=== PATIENT | female | born 1925 | race Caucasian/White ===

== ENCOUNTER 2016-10-15 17:09 | Observation (INO) | payer OTHER, BC ==
[2016-10-15] MEDS ORDERED: NITROGLYCERIN 0.4 MG BTL SL PRN (17:42)
[2016-10-15] MEDS ORDERED: NS 1,000 ML IV ONE (17:42)
[2016-10-15] MEDS ORDERED: ASPIRIN 81 MG CHEWABLE TAB PO ONE (17:42)
--- NOTE | 2016-10-15 17:42 | CPEKG ---
Heart Rate: 72 RR Interval: 833 P-R Interval: 184 QRSD Interval: 88 QT Interval: 360 QTC Interval: 394 P Paulding: 48 QRS Paulding: -46 T Wave Paulding: 1 EKG Severity - ABNORMAL ECG - EKG Impression: SINUS RHYTHM EKG Impression: LEFT ANTERIOR FASCICULAR BLOCK EKG Impression: CONSIDER ANTEROSEPTAL INFARCT EKG Impression: BORDERLINE T WAVE ABNORMALITIES Electronically Signed By: Titus Almanza 15-Oct-2016 22:32:10
--- NOTE | 2016-10-15 17:43 | EDPHY ---
H & P Stated Complaint: Chest pain, jaw pain, SOB yesterday HPI/ROS: HPI CHIEF COMPLAINT: Chest pain, jaw pain, shortness of breath HISTORY OF PRESENT ILLNESS: This patient very pleasant 89-year-old female significant past medical history for thyroid disease, hypertension, venous stasis, chronic lower extremity edema, no history of stroke or cardiac disease, she presents emergency room with a brief episode of chest pain with jaw pain yesterday for approximately 20-30 minutes. Since resolved however today she noticed dyspnea on exertion profound dyspnea when she would go to walk. She states she was going to breakfast this morning and had dyspnea on exertion. And then had further dyspnea on exertion after she walked home. No chest pain today. She describes substernal chest pain with pain radiating to her bilateral jaw. Past Medical History: Hypertension, thyroid disease, peripheral edema Past Surgical History: No surgical history Social History: Retired, denies drugs alcohol tobacco products, lives locally Family History: Noncontributory ROS REVIEW OF SYSTEMS: A comprehensive 10 point review of systems is otherwise negative aside from elements mentioned in the history of present illness. Exam Constitutional triage nursing summary reviewed, vital signs reviewed, awake/ alert. Eyes normal conjunctivae and sclera, EOMI, PERRLA. HENT normal inspection, atraumatic, moist mucus membranes, no epistaxis, neck supple/ no meningismus, no raccoon eyes. Respiratory clear to auscultation bilaterally, normal breath sounds, no respiratory distress, no wheezing. Cardiovascular rate normal, regular rhythm, no murmur, no edema, distal pulses normal. Gastrointestinal soft, non-tender, no rebound, no guarding, normal bowel sounds, no distension, no pulsatile mass. Genitourinary no CVA tenderness. Musculoskeletal bilateral lower extremity 2+ pitting edema, no midline vertebral tenderness, full range of motion, no calf swelling, no tenderness of extremities, no meningismus, good pulses, neurovascularly intact. Skin pink, warm, & dry, no rash, skin atraumatic. Neurologic awake, alert and oriented x 3, AAOx3, moves all 4 extremities equally, motor intact, sensory intact, CN II-XII intact, normal cerebellar, normal vision, normal speech. Psychiatric normal mood/affect. Heme/Lymph/Immune no lymphadenopathy. Differential diagnosis includes but is not limited to: ACS, atypical chest pain , pneumothorax, pneumonia, pulmonary embolism, aortic dissection, congestive heart failure, tumor, musculoskeletal pain, esophageal pain, GERD, peptic ulcer disease, pancreatitis Medical Decision Making: Plan for this patient full-dose aspirin, psychologists, IV establishment, EKG, troponin, D-dimer, chest x-ray rule out acute coronary syndrome. Re-evaluation: EKG interpretation by me on record in [employer] system. Impression time of EKG 17 40, sinus rhythm rate of 72 left anterior fascicular block present. T- wave abnormalities noted inferior leads 3, AVF flattening in V4 V5 V6. Q-waves noted in V1 V2 V3. When I compare this EKG to her old EKG dated 08/21/2015 it is similar morphology however the T-waves are more pronounced in inferior leads and ST segment flattening in V4 V5 V6 are more prominent. CT scan of the angiogram chest with IV contrast. The results of the study are negative for pulmonary embolism.. The study was read by Dr. Hood. I viewed the images myself on the PACS system. 2012: Given this patient's presentation of chest pain, jaw pain patient need to be admitted the hospital for further cardiac evaluation. Here in the emergency room patient has an unchanged EKG. CT angiogram does not show pulmonary embolism a negative troponin and a mildly elevated D-dimer. Patient need to be admitted for serial enzymes and further cardiac evaluation. I will touch base with the hospital service for admission. She is chest pain-free at this time and hemodynamically stable for admission. Discussed reason for admission patient agrees for admission. Updated family and patient. 2035: Spoke with Dr. Rios, he agrees to admit the patient. Patient is hemodynamically stable. EKG unchanged from previous negative troponin. Chest pain-free at this time. Source: Patient - Personal History Current Tetanus/Diphtheria Vaccine: Unsure Current Tetanus Diphtheria and Acellular Pertussis (TDAP): Unsure - Medical/Surgical History Hx Asthma: No Hx Chronic Respiratory Disease: No Hx Diabetes: No Hx Cardiac Disease: Yes Hx Renal Disease: No Hx Cirrhosis: No Hx Alcoholism: No Hx HIV/AIDS: No Hx Splenectomy or Spleen Trauma: No Other PMH: HTN, HYPOTHYROID, chronic constipation, chf. psh: wisdom teeth - Social History Smoking Status: Former smoker Constitutional: Initial Vital Signs Temperature (C) 36.9 C 10/15/16 17:15 Heart Rate 81 10/15/16 17:15 Respiratory Rate 18 10/15/16 17:15 Blood Pressure 147/83 H 10/15/16 17:15 O2 Sat (%) 92 10/15/16 17:15 O2 Delivery Mode Nasal Cannula Allergies/Adverse Reactions: No Known Allergies Allergy (Verified 10/15/16 17:14) Home Medications: Medication Instructions Recorded Herbals/Supplements -Info Only 1 ea PO DAILY 02/23/15 Hypromellose [GENTEAL SEVERE] 1 mo OP PRN PRN 02/28/15 Furosemide [Lasix 20 MG (*)] 20 mg PO DAILY #30 tab 08/21/15 Levothyroxine [Synthroid 75 mcg 75 mcg PO DAILY06 #30 tab 08/21/15 (*)] Losartan Potassium [Cozaar 25 mg 25 mg PO DAILY #30 tab 08/21/15 (*)] Medical Decision Making - Data Points Laboratory Results: Laboratory Results 10/15/16 17:40 10/15/16 17:40 Medications Given: Discontinued Medications Aspirin (Aspirin) 324 mg PO EDNOW ONE Stop: 10/15/16 17:43 Last Admin: 10/15/16 18:22 Dose: 324 mg Sodium Chloride (Ns) 1,000 mls @ 0 mls/hr IV ONCE ONE; Wide Open PRN Reason: Protocol Stop: 10/15/16 17:43 Last Admin: 10/15/16 18:29 Dose: Not Given Isosorbide Dinitrate (Isosorbide Dinitrate) 20 mg PO BIDNITRATE RANDA Stop: 04/13/17 23:14 Last Admin: 10/16/16 00:05 Dose: Not Given Departure - Departure Disposition: [facility] Inpatient Acute Clinical Impression: Chest pain Qualifiers: Chest pain type: unspecified Qualified Code(s): R07.9 - Chest pain, unspecified Condition: Fair
[2016-10-15 17:56] LABS: % IMMATURE GRANULYOCYTES 0.2 % (0.0-1.1); ABSOLUTE IMMATURE GRANULOCYTES 0.01 10^3/uL (0.00-0.10); ADD DIFF? NO; ADD MORPH? NO; ADD SCAN? NO; ATYPICAL LYMPHOCYTE FLAG 0 (0-99); FRAGMENT RBC FLAG 0 (0-99); HEMATOCRIT 40.5 % (38.0-47.0); HEMOGLOBIN 13.9 g/dL (12.6-16.3); LEFT SHIFT FLG 0 (0-99); LIPEMIA HEMOLYSIS FLAG 90 (0-99); MEAN CELL HEMOGLOBIN 33.7 pg (27.9-34.1); MEAN CELL HEMOGLOBIN CONCENTR. 34.3 g/dL (32.4-36.7); MEAN CELL VOLUME 98.1 fL (81.5-99.8); MEAN PLATELET VOLUME 10.1 fL (8.7-11.7); PLATELET CLUMPS FLAG 0 (0-99); PLATELET COUNT 179 10^3/uL (150-400); RED BLOOD CELL COUNT 4.13 10^6/uL (4.18-5.33); RED CELL DISTRIBUTION WIDTH 13.3 % (11.5-15.2)
[2016-10-15 18:04] LABS: INR 0.95 (0.83-1.16); PROTIME(PATIENT) 12.6 SEC (12.0-15.0)
[2016-10-15 18:06] LABS: ALANINE AMINOTRANSFERASE 28 IU/L (9-52); ALKALINE PHOSPHATASE 91 IU/L (38-126); ANION GAP 8 mEq/L (8-16); ASPARTATE AMINOTRANSFERASE 31 IU/L (14-46); BILIRUBIN,TOTAL 0.6 mg/dL (0.1-1.4); BILIRUBIN-CONJUGATED 0.2 mg/dL (0.0-0.5); BILIRUBIN-UNCONJUGATED 0.4 mg/dL (0.0-1.1); CALCIUM 9.7 mg/dL (8.5-10.4); CARBON DIOXIDE 24 mEq/l (22-31); CHLORIDE 99 mEq/L (97-110); CREATININE 1.4 mg/dL (0.6-1.0); GLOMERULAR FILTRATION RATE 35; GLUCOSE 80 mg/dL (70-100); MAGNESIUM 2.2 mg/dL (1.6-2.3); POTASSIUM 4.8 mEq/L (3.5-5.2); SODIUM 131 mEq/L (134-144); TOTAL PROTEIN 7.2 g/dL (6.3-8.2)
[2016-10-15 18:18] LABS: CREATINE KINASE-MB FRACTION 1.98 ng/mL (0-3.19); TROPONIN I < 0.012 ng/mL (0-0.034)
[2016-10-15] MEDS ORDERED: IOPAMIDOL (ISOVUE 370) 100 ML BTL IV ONE (19:17)
[2016-10-15] MEDS ORDERED: ISOSORBIDE DINITRATE 20 MG TAB PO SCH (23:15)
[2016-10-15] MEDS ORDERED: HYPROMELLOSE OP PRN (23:16)
[2016-10-15] MEDS ORDERED: ONDANSETRON DISINTEGRATING 4 MG TAB PO PRN (23:24)
[2016-10-15] MEDS ORDERED: ACETAMINOPHEN 325 MG TAB PO PRN (23:24)
[2016-10-15] MEDS ORDERED: ONDANSETRON 4 MG/2 ML VIAL IVP PRN (23:24)
[2016-10-16] MEDS: ISOSORBIDE MONONITRATE 30 MG TAB.SR PO SCH ×2 (00:16→06:53)
--- NOTE | 2016-10-16 01:35 | GHP ---
[f rep st] HISTORY AND PHYSICAL DATE OF ADMISSION: 10/15/2016 CHIEF COMPLAINT: Chest pain and shortness of breath. HISTORY OF PRESENT ILLNESS: This is an 89-year-old female, who presents mostly because of her short ness of breath. She had an episode of 20-30 minutes of chest pain yesterday where it radiated to he r bilateral jaws. This self-resolved. She does not often have episodes like this. She was walking to breakfast this morning when she felt extremely dyspneic. She ate breakfast and then walked home , and she also felt very dyspneic. She had an episode like this about 3 weeks ago, though this is a lso atypical for her. She has noticed she has had a little bit more swelling in her lower extremiti es recently. She did have an episode of worsening lower extremity edema about a year ago. She was treated with diuretics, is still on diuretics and this has resolved. She notes she normally does no t have high blood pressures, normally within the range. She is taking losartan. She has had some a bdominal pain recently, as well. PAST MEDICAL/SURGICAL HISTORY: 1. Hypertension. 2. Venous stasis with chronic lower extremity edema. 3. Hypothyroid. 4. Diastolic heart failure. MEDICATIONS: Please see medication reconciliation. ALLERGIES: None. FAMILY HISTORY: Father of heart attack at 92 years old. SOCIAL HISTORY: She does not drink or smoke. REVIEW OF SYSTEMS: A 10-point review of systems is conducted and is negative except per HPI. PHYSICAL EXAM: VITAL SIGNS: Blood pressure 190/93, heart rate is 62, respiration rate 18, saturati ng at 93% on room air. Temperature is 36.8. GENERAL: The patient is a pleasant female who is rest ing comfortably in bed, in no acute distress. HEENT: Normocephalic, atraumatic. CARDIOVASCULAR: Regular rate and rhythm. There are no murmurs, rubs, or gallops. She has no JVD. She has 1+ bilat eral lower extremity edema. PULMONARY: Lungs clear to auscultation bilaterally. She is not in any respiratory distress. ABDOMEN: Soft, nontender, nondistended. SKIN: No rash. : No Villegas. N EUROLOGIC: Alert and oriented x3. She is moving all extremities. PSYCHIATRIC: Normal mood and af fect. LABORATORY DATA: CBC is normal. D-dimer is 0.98, INR is 0.95. Sodium is 131, creatinine is 1.4. BNP is 901. Otherwise, electrolytes and LFTs are normal. DATA: 1. CT angiogram shows no evidence of a PE. It does show a focal area of increased perfusion on art erial phase study of uncertain significance. 2. EKG, which I personally reviewed and interpreted, shows sinus rhythm. She has a left anterior f ascicular block. She has mild T-wave flattening in lead V6, which is different from previous. IMPRESSION AND PLAN: This is an 89-year-old female with chest pain, dyspnea. 1. Chest pain/dyspnea: Seems atypical for acute coronary syndrome. She had negative stress test a bout a year ago. Regardless, we will monitor on telemetry, trend her troponins. I have ordered an echocardiogram to reassess her ejection fraction, which was normal about a year ago. I will hold of f on ordering a stress test at this point, since she had one recently and this is an atypical episod e. I will get another EKG in the morning. If this is changed or troponins are positive, would re-e valuate. 2. Uncontrolled hypertension: Started her on some low-dose Imdur for tonight. She does have a his tory of white coat hypertension. Perhaps this is contributing to her dyspnea. We will follow this. 3. Questionable lesions seen in her liver: She does have some abdominal pain which does not seem r elated. I did not discuss this with her. This can probably be followed up as an outpatient. 4. Elevated creatinine: Slightly higher than her baseline, though her baseline seems to be somewhe re between 0.9 and 1.2. We will recheck this in the morning. 5. Mild hyponatremia: She has had a history of hyponatremia in the past. We will also recheck thi s in the morning. 6. Code status: She would like to be a [id number]. I discussed this with her. /[id number]/MODL
[2016-10-16 03:48] VITALS: TEMP 97.4
[2016-10-16 04:40] LABS: ANION GAP 7 mEq/L (8-16); CALCIUM 9.1 mg/dL (8.5-10.4); CARBON DIOXIDE 24 mEq/l (22-31); CHLORIDE 102 mEq/L (97-110); CREATININE 1.2 mg/dL (0.6-1.0); GLOMERULAR FILTRATION RATE 42; GLUCOSE 80 mg/dL (70-100); POTASSIUM 4.5 mEq/L (3.5-5.2); SODIUM 133 mEq/L (134-144)
[2016-10-16 04:49] LABS: TROPONIN I < 0.012 ng/mL (0-0.034)
[2016-10-16] MEDS ORDERED: LEVOTHYROXINE 75 MCG TAB PO SCH (06:00)
[2016-10-16] MEDS ORDERED: ISOSORBIDE MONONITRATE 30 MG TAB.SR PO SCH (07:00)
[2016-10-16 08:26] VITALS: O2SAT 93
[2016-10-16] MEDS ORDERED: FUROSEMIDE 20 MG TAB PO SCH (09:00)
--- NOTE | 2016-10-16 09:20 | CPEKG ---
Heart Rate: 70 RR Interval: 857 P-R Interval: 180 QRSD Interval: 94 QT Interval: 392 QTC Interval: 423 P Dunsmuir: 21 QRS [place]: -60 T Wave [place]: 63 EKG Severity - ABNORMAL ECG - EKG Impression: SINUS RHYTHM EKG Impression: LEFT ANTERIOR FASCICULAR BLOCK EKG Impression: ANTERIOR INFARCT, AGE INDETERMINATE Electronically Signed By: Asad Anand 16-Oct-2016 09:53:51
--- NOTE | 2016-10-16 10:20 | ECHO ---
[id number] + + [address] : : [place] [address] : : [phone] + + Adult Echocardiographic Report + --------+ :Name: TERRI KANG JStudy Date: 10/16/2016 07:35 AM : : Hospital Admission Number: [id number] Locat ion: 202: :: 1925 Gender: Female Height: 62 in : :Age: 89 yrs Race: WH Weight: 158 l b : :Reason For Study: Eval LV Fx : : BSA: 1.7 mete rs2 : :History: Chest Pain : + --------+ MMode/2D Measurements \T\ Calculations IVSd: 1.0 cm LVIDd: 3.5 cm FS: 29.0 % Ao root diam: 3.0 cm LVPWd: 0.95 cm LVIDs: 2.5 cm EDV(Teich): 50.6 ml ACS: 1.6 cm ESV(Teich): 21.9 ml EF(Teich): 56.8 % Normal Measurement Values: + + :LVIDd (3.5-5.7cm) IVSd (0.6-1.1cm) LVPWd (0.6-1.1cm) Aortic Root (2.0-3.7cm)Left Atrium (1.5-4.0cm): :LV Vol(d) (76-115ml) LV Vol(s) (29-48ml) Ejec Fraction (50-65%)PV Luis (0.6- 1.2m/s) TV Luis (0.4-1.0m/s) : :MV E Luis (0.8-1.0m/s)MV A Luis (0.3-1.0m/s)LVOT Luis (0.7-1.2m/s) Asc Ao Luis ( 0.9-1.8m/s) : + + Doppler Measurements \T\ Calculations MV E max luis: Ao V2 max: LV V1 max: PA V2 max: 75.0 cm/sec 129.0 cm/sec 97.7 cm/sec 71.9 cm/sec MV A max luis: Ao max P.7 mmHgLV V1 max PG: PA max P.0 cm/sec 3.8 mmHg 2.1 mmHg MV E/A: 0.66 TR max luis: 324.4 cm/sec TR max P.1 mmHg RAP systole: 5.0 mmHg RVSP(TR): 47.1 mmHg Left Ventricle The left ventricle is normal in size. There is mild concentric left ventricular hypertrophy. Left ventricular systolic function is low normal. Ejection Fraction = 55%. The left ventricular wall motion is normal. Right Ventricle The right ventricle is normal in size and function. Atria The left atrial size is normal. Right atrial size is normal. Mitral Valve The mitral valve is normal. There is no evidence of mitral valve prolapse. There is no mitral valve stenosis. There is trace mitral regurgitation. Tricuspid Valve There is trace tricuspid regurgitation. Right ventricular systolic pressure is 47mmHg. There is Doppler evidence for mild pulmonary hypertension. Aortic Valve There is mild aortic valve calcification. There is no aortic stenosis. Trace aortic regurgitation. Pulmonic Valve The pulmonic valve is normal in structure and function. There is no pulmonic valvular regurgitation. Great Vessels The aortic root is normal size. Pericardium/Pleural There is no pericardial effusion. Conclusion A complete two-dimensional transthoracic echocardiogram was performed (2D, M-mode, Doppler and color flow Doppler). There is mild concentric left ventricular hypertrophy. Left ventricular systolic function is low normal. Ejection Fraction = 55%. The left ventricular wall motion is normal. The right ventricle is normal in size and function. The left atrial size is normal. The mitral valve is normal. There is trace mitral regurgitation. There is trace tricuspid regurgitation. Right ventricular systolic pressure is 47mmHg. There is Doppler evidence for mild pulmonary hypertension. There is mild aortic valve calcification. Trace aortic regurgitation. The pulmonic valve is normal in structure and function. The aortic root is normal size. There is no pericardial effusion. Final Reading Physician: Lenny Tai signed on 10/16/2016 10:18 AM Ordering Physician: Mukund Bass Performed By: Rufus Johnson, CS
--- NOTE | 2016-10-16 10:46 | PDDCSUM ---
Discharge Summary Discharge Summary: Dates of service 10/15-10/16/16 Discharge dx: # chest pain # htn # nancy # chronic diastolic heart failure # chronic venous stasis Procedures performed: chest CTA, echocardiogram consultations: none Hospital course by problem: # chest pain: this occurred briefly 2 days prior to arrival without recurrence since. Atypical history, trops neg x 3, cta negative for any acute findings, echocardiogram without wall motion abnormality with EF of 55% and no significant valvular disease. Had a negative stress test 1 year ago. At this point, feel that further w/u is likely not indicated. 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 in the coming 1-2 weeks but otherwise safe to dc home # htn: elevated on arrival but improved back on her usual home bp meds, will not make any changes to her regimen at this time but recommending f/u with pcp/ cardiology # nancy and ckd: baseline creatinine of 1.1-1.2 it appears, on presentation increased to 1.4 with associated hyponatremia and suspect pre renal etiology, continue usual op f/u # chronic diastolic heart failure: no e/o acute decompensation as above # chronic venous stasis: stable mild lower extremity edema DC home f/u with cardiology/pcp > 35 min spent in dc of patient more than half in face to face counseling and coordination of care
[2016-10-16 11:36] VITALS: BP 123/61; PULSE 63; RESP 17
== END 2016-10-16 12:33 | disposition home or self-care (01) ==
LOC: F2W 21:03
PROVIDERS: ADMIT Internal Medicine; ATTEND Internal Medicine
DX: R07.9 Chest pain, unspecified (principal); R06.02 Shortness of breath; I10 Essential (primary) hypertension; E03.9 Hypothyroidism, unspecified; N17.9 Acute kidney failure, unspecified; N18.9 Chronic kidney disease, unspecified; Z87.891 Personal history of nicotine dependence; I50.9 Heart failure, unspecified; K59.09 Other constipation; I87.8 Other specified disorders of veins
CPT/HCPCS: 71010; 71275; 93005; 93306; G0378; Q9967